=== PATIENT | male | born 1960 | race Caucasian/White ===

== ENCOUNTER 2018-11-01 05:47 | Day surgery (SDC) | payer BC ==
[2018-10-25 08:37] VITALS: BMI 33.7
--- NOTE | 2018-10-31 13:26 | HP ---
HISTORY OF PRESENT ILLNESS: Mr. Abad is a very pleasant 58-year-old man presenting byway of referral from both Dr. Peralta and Dr. Espinoza, who presents for roughly 8 months worth of severe right lower extremity L5 pains and now has some atrophy the calf and fibular muscles of the right lower extremity. He reports that he has had one caudal epidural steroid injection last week with Dr. Peralta, which helped a great deal, although his pain is still present and he frequently lays down secondary to pain, in fact, he is lying down on the table when I came into the room today. He states his pain flares are great deal when he is sitting or standing. He does not feel that he is weak nor that he has any numbness. MRI from the [facility] reveals congenitally-narrowed canal as well as right-sided sequestered disk fragment at L4 to the right, which causes obscuration of the descending L5 nerve root on that side matching his symptoms well. Throughout our discussion, he continually denies left lower extremity symptoms. PAST MEDICAL HISTORY: None listed. CURRENT MEDICATIONS: Prednisone. ALLERGIES: NO KNOWN DRUG ALLERGIES. PHYSICAL EXAMINATION: GENERAL: The patient is alert and oriented x3. The patient is recumbent on the table in the exam room. EXTREMITIES: He has significantly antalgic gait. Lower extremity exam is normal, though he does have a positive right straight leg raise. ASSESSMENT: Lumbar disk herniation with radiculopathy. PLAN: Dr. Gonzalez met with the patient, reviewed imaging, advocated for right L4 diskectomy. He explained to the patient the risks, benefits, and alternatives to the procedure. The patient expressed understanding and elected to go forward with surgery as discussed. I do believe the patient is mentally competent and capable of making medical decisions for himself. We will move forward with surgery as planned. Job ID: [id number]
[2018-11-01] MEDS ORDERED: Thrombin 5000 UNITS/5 ML VIAL ONE (06:16)
[2018-11-01] MEDS ORDERED: Bupivacaine HCl 0.5%/Epinephrine 1:200,000/PF 30 ml Vial ONE (06:16)
[2018-11-01] MEDS ORDERED: Fentanyl 100 MCG/2 ML VIAL ONE ×3 (06:43→08:46)
[2018-11-01] MEDS ORDERED: Famotidine/PF 20 mg/2ml Vial ONE (06:43)
[2018-11-01] MEDS ORDERED: Levofloxacin 500 mg/D5W 100 ml Premix Bag ONE (06:47)
[2018-11-01] MEDS ORDERED: Clindamycin/D5W 900 mg/50 ml Premix Bag ONE (06:47)
[2018-11-01] MEDS ORDERED: Midazolam HCl 2 mg/2 ml Vial ONE (06:59)
[2018-11-01] MEDS ORDERED: Tamsulosin HCl 0.4 MG CAP ONE (08:49)
[2018-11-01] MEDS ORDERED: PROPOFOL 200 MG/20 ML VIAL ONE (10:49)
[2018-11-01] MEDS ORDERED: Lidocaine 1% PF 5 ML VIAL ONE (10:49)
[2018-11-01] MEDS ORDERED: Ondansetron PF 4 MG/2 ML Vial ONE (10:49)
[2018-11-01] MEDS ORDERED: Ketorolac Tromethamine 30 MG/ML VIAL ONE (10:49)
[2018-11-01] MEDS ORDERED: Glycopyrrolate 0.2 MG/ML 5 ML SYRINGE ONE (10:49)
[2018-11-01] MEDS ORDERED: Rocuronium Bromide 10 MG/ML (10ML VIAL) ONE (10:49)
[2018-11-01] MEDS ORDERED: Dexamethasone 20 MG/5 ML VIAL ONE (10:49)
--- NOTE | 2018-11-01 15:07 | OP ---
DATE OF PROCEDURE: 11/01/2018 PURCHASING AND FISCAL CLERK: Sushil James PA-C. INDICATION: Pain. DIAGNOSIS: Right L5 radiculopathy. PROCEDURE: L4 diskectomy. ANESTHESIA: General. DESCRIPTION OF PROCEDURE: The patient was brought into the operating room and placed under general anesthesia. He was flipped from supine to prone position on the operating room table. A linear incision was planned over the L4-L5 segment. After prepping and draping and after preoperative pause, the incision was created. The soft tissues were swept away from midline. A self-retaining retractor was placed in the wound for optimal exposure. After confirming the appropriate level with C-arm fluoroscopy, an Adson rongeur, a high-speed cutting drill bit, and 3 and 4 mm Kerrison's were used to perform a laminectomy through most of L4. After decompressing the L4, we directed our attention to the right lateral recess, where the descending L5 nerve root was mobilized medially with a nerve root retractor. An 11 blade knife was used to perform an annulotomy in the disk space. The disk material was removed until the descending L5 nerve root was well decompressed. The wound was then irrigated. Hemostasis was maintained throughout. The wound was then closed in anatomic layers and a pressure dressing was applied. There were no known procedural complications. Job ID: [id number]
== END 2018-11-01 10:25 | disposition home or self-care (01) ==
LOC: SDC 05:47
PROVIDERS: ATTEND Neurological Surgery
PROC: 0SB20ZZ Excision of Lumbar Vertebral Disc, Open Approach (ICD-10-PCS; principal; 2018-11-01)
DX: M51.16 Intervertebral disc disorders with radiculopathy, lumbar region (principal); M48.061 Spinal stenosis, lumbar region without neurogenic claudication; Z88.0 Allergy status to penicillin; Z79.52 Long term (current) use of systemic steroids; Z79.891 Long term (current) use of opiate analgesic
CPT/HCPCS: 76000; 96374; J0131; J0670; J1100; J1885; J1956; J2001; J2250; J2405; J2704; J3010; J3490; S0028

== ENCOUNTER 2019-05-02 10:06 | Outpatient (CLI) | payer BC ==
--- NOTE | 2019-05-02 11:06 | ULT ---
BILATERAL RENAL ULTRASOUND: HISTORY: Renal cyst, hypertension FINDINGS: The right kidney measures 11.2 cm in length and the left kidney measures 12.1 cm in length. There are cysts in the kidneys measuring 1 cm on the right and 1.2 cm in the left. No hydronephrosis is noted. No shadowing calculi are seen. The renal pelves are bilaterally prominent both pre and post void. The urinary bladder volume is 34 c c prevoid and is empty on the post void exam. The prostate is prominent measuring 3 x 3.6 x 3 cm. IMPRESSION: Bilateral renal cysts.
== END 2019-05-02 10:07 | disposition home or self-care (01) ==
LOC: BICULT 10:06
PROVIDERS: ATTEND Family Medicine
DX: I10 Essential (primary) hypertension (principal); N28.1 Cyst of kidney, acquired
CPT/HCPCS: 76770

== ENCOUNTER 2023-01-03 08:52 | Outpatient (CLI) | payer BC | END 2023-01-03 08:53 | disposition home or self-care (01) | LOC: BICRAD 08:52 | PROVIDERS: ATTEND Neurological Surgery | DX: M47.26 Other spondylosis with radiculopathy, lumbar region (principal); M47.22 Other spondylosis with radiculopathy, cervical region; M54.6 Pain in thoracic spine; M47.814 Spondylosis without myelopathy or radiculopathy, thoracic region; M46.04 Spinal enthesopathy, thoracic region; M51.36 Other intervertebral disc degeneration, lumbar region; M51.37 Other intervertebral disc degeneration, lumbosacral region; M46.06 Spinal enthesopathy, lumbar region; M89.38 Hypertrophy of bone, other site | CPT/HCPCS: 72040; 72072; 72100 ==

== ENCOUNTER 2023-02-01 08:50 | Outpatient (CLI) | payer BC | END 2023-02-01 08:51 | disposition home or self-care (01) | LOC: MRI 08:50 | PROVIDERS: ATTEND Neurological Surgery | DX: M47.26 Other spondylosis with radiculopathy, lumbar region (principal); M54.6 Pain in thoracic spine; M51.16 Intervertebral disc disorders with radiculopathy, lumbar region; M47.814 Spondylosis without myelopathy or radiculopathy, thoracic region; M51.34 Other intervertebral disc degeneration, thoracic region; M89.38 Hypertrophy of bone, other site; M50.122 Cervical disc disorder at C5-C6 level with radiculopathy; M50.13 Cervical disc disorder with radiculopathy, cervicothoracic region; M50.11 Cervical disc disorder with radiculopathy, high cervical region; R93.7 Abnormal findings on diagnostic imaging of other parts of musculoskeletal system; M51.37 Other intervertebral disc degeneration, lumbosacral region | CPT/HCPCS: 72141; 72146; 72148 ==

== ENCOUNTER → 2023-07-02 | Day surgery (SDC) | payer BC ==
[2023-07-02 08:43] VITALS: BP 130/86; TEMP 98.9
[2023-07-02 10:22] LABS: CSF Source CSF; Clarity Hazy (Clear); Tube # 4
[2023-07-02 10:40] LABS: CSF, Glucose 56 mg/dl (40-70); CSF, Protein 82 mg/dL (15-40)
[2023-07-02 15:34] LABS: Color Of CSF Supernatant COLORLESS (Colorless); Tube # 1; Unspun CSF Color PINK (Colorless)
== END ==
LOC: RAD 08:00
PROVIDERS: ATTEND Internal Medicine
DX: A53.9 Syphilis, unspecified (principal); Z88.0 Allergy status to penicillin
CPT/HCPCS: 62270; 82945; 84157; 86592; 89051